=== PATIENT | female | born 1965 | race Caucasian/White ===

== ENCOUNTER 2017-01-04 06:38 | Day surgery (SDC) | payer OTHER ==
--- NOTE | 2017-01-03 14:13 | PCM.HPANE ---
Patient Data Surgeon Admitting Provider: Attending Provider:Edmundo Orantes MD Primary Care Physician:Gonzalez Barraza DO Other Provider:Pilar Pritchardingham Anesthesia Reason for Visit Left Knee Lateral Meniscus Tear Ht/WT & BMI Height (Feet): 5 Height (Inches): 3 Weight (Kilograms): 91.62 Body Mass Index 35.00 Allergies Coded Allergies: No Known Allergies (Verified , 12/05/15) Past Anesthesia History Anesthesia History: Denies:: Abnormal Airway, Anesthesia Reactions (UNCLEAR- PRIOR TO PROCEDURE HAD A CARDIAC ARREST 1988), Difficult Intubation, Fam Anesthesia Reaction, Fam Malignant Hypertherm, Malignant Hyperthermia Diabetes History Hx Diabetes?: No MRSA MRSA: No Medications Reported Medications Albuterol HFA (Proair HFA)8.5 Gm Hfa.aer.ad2 Puffs INHALATION Q4H #1 INHALER 01/02/17 Multivitamin (Multivitamins)1 Each Capsule1 Each PO DAILY 01/02/17 Meloxicam 15 Mg [id number] Mg PO DAILY 30 Days Ref 0 01/02/17 Calcium Carbonate (Calcium)600 Mg [id number] Mg PO DAILY 01/02/17 Amoxicillin/Clav K 875-125 mg (Augmentin 875-125 mg)1 Each Tablet1 Tablet PO BID #20 TABLET Ref 0 01/02/17 Discontinued Reported Medications Benzonatate 200 Mg [id number] Mg PO TID 01/02/17 History History of ENT Problems?: No HEENT History: Positive for:: Sinus Problem (CURRENTLY ON AUGMENTIN) Denies:: Abnormal Airway Difficult Intubation Dysphagia Hearing Problem Hx of Heart Problems?: Yes Cardiovascular History: Positive for:: Chest Pain (12/05 RULE OUT NON CARDIAC) Denies:: AICD Atrial Fibrillation Congestive Heart Failure Hypertension Valvular Heart Disease Hx of Respiratory Problem?: No Respiratory History: Positive for:: Asthma Use of Inhalers / NEBS (OCCASIONAL) Denies:: COPD Cough Hemoptysis Pneumonia Tuberculosis Hx Neurologic Problems?: Yes Neurological History: Denies:: CVA Dementia Other Neurological Pertinent: TOURETTE'S SYNDROME Hx of GI Problems?: Yes Gastrointestinal History: Positive for:: Rectal Bleeding (1 MONTH OF BLACK/ BLOODY STOOL(2011)) Denies:: Cirrhosis Diverticulitis Gastroesphageal Reflux Hiatal Hernia Genitourinary History: Positive for:: Urinary Tract Infection Female Hx: Denies:: Currently (HYSTERECTOMY) Skin History: Denies:: History Skin Disorders? Hx Musculoskeletal Problems?: No Musculoskeletal History: Positive for:: Musculoskeletal Trauma (LEFT KNEE) Osteoarthritis Denies:: Joint Replacement Hx of Psycho/Social Problems?: Yes Psycho Social History: Positive for:: Anxiety Hx Depression (CONTROLLED WITH MEDS) Hx Surgeries?: Yes (HYSTERECTOMY, TUBAL, 3 C-SECTIONS) Hx Any Other Health Problems?: No History Blood Transfusions: Positive for:: Accept Blood Products? Denies:: Blood Transfusions Hx Diabetes: No Other Pertinent History: HX OF ANEMIA HX OF TERITES Hx Alcohol Use: NoHx Substance Use: No Smoking Status: Former Smoker Have You Smoked inLast 12 mo: No Stop/Bang S-Snoring: Do You Snore Loudly: Yes T-Tired: feel tired, fatigued: No O-Obsered: Observed not breath: No P-Blood Pressure: treated: No B- Body Mass Index > 35 kg/m2: Yes A- Age over 50: Yes N- Neck Large Circumference: No G- Gender Male: No ERMA Total Score: 3 Risk Assessment Category Category 1A: Patient has history of documented sleep apnea, and HAS NOT received any narcotic, sedative or anesthesia administration during this stay. Category 1B: Patient has history of documented sleep apnea, and HAS received any narcotic , sedative or anesthesia administration during this stay Category 2: Patient has SUSPECTED Obstructive Sleep Apnea, and HAS received any narcotic , sedative or anesthesia administration during this stay. Category 3: Patient has SUSPECTED Obstructive Sleep Apnea and HAS NOT received narcotic, sedative or anesthesia administration during this stay. Category 4: Outpatient in Procedural Areas with known sleep apnea or who screen positive for High Risk via the STOP/BANG questionnaire. Exam Exam General Appearance: Alert, Oriented X3, Cooperative HEENT/AIRWAY: MP 2, Neck Movement (from), Mouth Opening (wnl) Lungs: Clear to Auscultation Heart: Exam Unremarkable Plan Impression Patient chart reviewed, patient interviewed and anesthestic plan with risks, benefits, and alternatives discussed, and informed consent obtained. ASA Physical Status: ASA2 Mod Systemic Disease Anesthetic Plan: GA Bene/Risks/Altern/Consents: Yes HP Complete Prior to Induction: Yes Frank Thompson had a lap tubal in mid twenties and woke up with a sore chest. She was told she " sort of had a cardiac arrest " during the procedure. She was never given more details than this. She also has had a hysterectomy since then and did fine. Will proceed with atropine close by. Gary Quiroz MD Jan 03, 2017 14:13
[~2017-01-04] VITALS: Ht 157.5 cm; Wt 91.8 kg
[2017-01-04] VITALS (9 sets, daily range): BP systolic 104–132; BP diastolic 50–75; PULSE 63–83; RESP 12–18; O2SAT 92–98
[~2017-01-04 06:38] MED LIST: ALBU8.5H2 INHALATION; AMOX-366 PO; Acetaminophen IV 1,000 MG in IV Premix 1 EACH IV ONE; BENZ200C44 PO; CALC600T12 PO; CeFAZolin Inj 2 GM in Dextrose 5% 50 ML IV ONE; LORazepam 1 mg Tablet PO PRN; MELO-253 PO; MULT1CAP33 PO
[2017-01-04] MEDS ORDERED: HYDROmorphone 2 mg/mL Inj ONE (06:39)
[2017-01-04] MEDS ORDERED: Propofol 10,000 mCg/mL 20 mL Inj ONE (06:39)
[2017-01-04] MEDS ORDERED: Ondansetron 2 mg/mL 2 mL Inj ONE (06:39)
[2017-01-04] MEDS ORDERED: fentaNYL-PF 50 mCg/mL 2 mL Inj ONE (06:39)
[2017-01-04] MEDS ORDERED: Dexamethasone 4 mg/mL Inj ONE (06:39)
[2017-01-04] MEDS ORDERED: CeFAZolin Inj 2 gm / 50mL D5W IV ONE (06:43)
[2017-01-04] MEDS: Lactated Ringer's 1,000 ML IV SCH ×2 (07:43→09:07)
[2017-01-04] MEDS ORDERED: Lactated Ringer's 1,000 ML IV SCH (08:24)
[2017-01-04] MEDS ORDERED: Lactated Ringer's 500 ML IV PRN (08:24)
[2017-01-04] MEDS ORDERED: HYDROmorphone 1 mg/mL Inj IVPUSH PRN (08:25)
[2017-01-04] MEDS ORDERED: Ondansetron 2 mg/mL 2 mL Inj IVPUSH PRN (08:25)
[2017-01-04] MEDS ORDERED: EPHEDrine Sulfate 50 mg/mL Inj IVPUSH PRN (08:25)
[2017-01-04] MEDS ORDERED: Dexamethasone 4 mg/mL Inj IVPUSH PRN (08:25)
[2017-01-04] MEDS ORDERED: hydrALAZINE 20 mg/mL Inj IVPUSH PRN (08:25)
[2017-01-04] MEDS ORDERED: Labetalol 5 mg/mL 4 mL Inj IV PRN (08:25)
[2017-01-04] MEDS ORDERED: Atropine 0.4 mg/mL Inj IVPUSH PRN (08:25)
[2017-01-04] MEDS ORDERED: Phenylephrine 10,000 mCg/mL Inj IVPUSH PRN (08:25)
[2017-01-04] MEDS ORDERED: fentaNYL-PF 50 mCg/mL 2 mL Inj IVPUSH PRN (08:25)
[2017-01-04] MEDS ORDERED: Lidocaine 2% 50 mL Inj IV ONE (09:05)
[2017-01-04] MEDS ORDERED: MethylprednisoLONE Depot 40 mg/mL Inj IRRIGATION ONE (09:21)
[2017-01-04] MEDS ORDERED: HYDROcodone-APAP 5-325 mg Tablet PO PRN (09:40)
--- NOTE | 2017-01-04 09:43 | PCM.ORTHOB ---
Immediate Operative Note Date of Service: Jan 04, 2017 Pre Operative Diagnosis Left knee lateral meniscal tear Post Operative Diagnosis Same Procedure Left knee arthroscopic partial lateral meniscectomy Surgeon Surgeon: Edmundo Orantes MD Assistants: None Findings A anterolateral, extra-articular ganglion cyst was decompressed through the lateral infrapatellar arthroscopic portal at the initiation of the case. Approximately 3 mL of benign-appearing, viscous gelatinous material consistent with a ganglion cyst was expressed. Left knee lateral compartment degenerative tear anterior horn lateral meniscus was confirmed. Diffuse grade 2 chondromalacia in the weightbearing surface on the tibial side. Diffuse grade 1 chondromalacia in the weightbearing surface the lateral femoral condyle. The anterior cruciate ligament showed partial fraying anteriorly but was otherwise intact and stable to probing. The medial compartment was better preserved with an intact and stable medial meniscus. There was some mild, superficial fraying of the anterior horn. There was diffuse grade 1 chondromalacia in the weightbearing surface of tibial articular surface and the medial femoral condyle showed minimal degenerative changes. The medial and lateral gutters were free of loose bodies. The patellofemoral compartment was remarkable for diffuse grade 1-2 chondromalacia affecting the majority of the patellar undersurface. Grafts, Implants: None Complications There were no periprocedural complications identified. Condition Stable Anesthetic Administered: GA Drains: None Catheters: None Output, Estimated Blood Loss: 1 Blood Admin during surgery: No Surgical Cast or Splint: None Additional Information Tourniquet time 18 minutes Surgical Specimen Removed: No Surgical Specimen sent to Path: No Post Operative Plan The patient will be discharged from daycare surgery when protocol is met. The patient may weight-bear as tolerated through her left lower extremity beginning postop day 1. Postoperative knee strengthening exercises will also be reinitiated postop day #1. The patient will be seen in the orthopedic clinic for routine postoperative wound check on her after postop day #5. The patient may have her skin sutures removed on or after postoperative day #12. The patient should be able to resume light activities by that point. Edmundo Orantes MD Jan 04, 2017 09:43
--- NOTE | 2017-01-04 09:47 | PCM.ANEP1 ---
Post Anesthesia Phase 1 PACU Phase 1 Assessment Date of Service: Jan 04, 2017 Vital Signs Vital Signs Date Time Temp Pulse Resp B/P Pulse Ox O2 Delivery O2 Flow Rate FiO2 01/04/17 09:41 64 13 104/50 97 Nasal Cannula 2 01/04/17 09:35 67 12 112/58 92 Room Air 01/04/17 09:30 76 12 113/59 93 Room Air 01/04/17 09:27 35.9 83 18 119/65 93 Room Air 01/04/17 07:25 36.2 76 16 132/75 95 Room Air Anesthetic Administered: GA Level of Alertness: Awake, talking BARTON's with Equal Strength: Yes Pain: No Nausea or Vomiting: No Oxygen Delivery: Room Air Lungs: Normal Air Movement Gary Quiroz MD Jan 04, 2017 09:47
--- NOTE | 2017-01-04 09:51 | PCM.ORTHOP ---
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 Patient has been bothered by left knee pain over the front and outside of her left knee since the incident despite activity modification, an attempt at knee rehabilitation and the use of anti-inflammatory agents. Preoperative exam of the patient's left knee reveals near full and stable knee range of motion with tenderness to palpation of the lateral joint line and a positive Yony test. Preoperative MRI of the patient's left knee is remarkable for horizontal tearing of the anterior horn of lateral meniscus and mild medial and patellofemoral degenerative changes. The patient presents for left knee arthroscopic partial lateral meniscectomy. Findings A anterolateral, extra-articular ganglion cyst was decompressed through the lateral infrapatellar arthroscopic portal at the initiation of the case. Approximately 3 mL of benign-appearing, viscous gelatinous material consistent with a ganglion cyst was expressed. Left knee lateral compartment degenerative tear anterior horn lateral meniscus was confirmed. Diffuse grade 2 chondromalacia in the weightbearing surface on the tibial side. Diffuse grade 1 chondromalacia in the weightbearing surface the lateral femoral condyle. The anterior cruciate ligament showed partial fraying anteriorly but was otherwise intact and stable to probing. The medial compartment was better preserved with an intact and stable medial meniscus. There was some mild, superficial fraying of the anterior horn. There was diffuse grade 1 chondromalacia in the weightbearing surface of tibial articular surface and the medial femoral condyle showed minimal degenerative changes. The medial and lateral gutters were free of loose bodies. The patellofemoral compartment was remarkable for diffuse grade 1-2 chondromalacia affecting the majority of the patellar undersurface. Details of Procedure The patient was brought to the OR and given a general anesthetic. She was placed in the supine position and the tourniquet was placed high about the left thigh. Left lower extremity was prepped and draped in usual sterile fashion and the tourniquet was inflated to 275 mmHg. We placed 2 infrapatellar arthroscopic portals, one lateral and one medial for the arthroscope and instruments. After placing the lateral arthroscopic portal at the level of the joint line we encountered a subcutaneous ganglion cyst and were able to express approximately 3 mL of benign-appearing gelatinous material consistent with a ganglion cyst. We deepened the percutaneous incisions into the joint. We inserted the arthroscope, instruments and instilled the knee with lactated Ringer's with epinephrine. We went directly into the lateral compartment where we encountered a degenerative tear of the anterior horn of the lateral meniscus involving the anterior fibers and peripherally extending towards the body. We used the arthroscopic shaver to debride the degenerative-appearing horizontal tear back to a stable base. Care was taken to avoid injury to the anterior cruciate ligament where it inserted medial to the tear. Once we had debrided the lateral meniscus. We reviewed the rest of the knee. We found early degenerative changes in the lateral compartment, primarily affecting the tibial articular surface with diffuse grade 2 chondromalacia. We noted diffuse grade 1 chondromalacia of the lateral femoral condyle weightbearing surface. The anterior cruciate ligament was reviewed and found to have some minor anterior fiber tearing of chronic appearance. The majority of the ligament was intact and stable to probing. The medial compartment was better preserved with minimal degenerative changes and intact and stable medial meniscus with some minor drainage of the anterior horn fibers. We reviewed the medial and lateral gutters and found to be free of loose bodies. The patellofemoral compartment was reviewed and found to have mild early degenerative changes with diffuse grade 1-2 chondromalacia primarily affecting the patellar undersurface. We thoroughly irrigated the knee and removed the scope and instruments. 30 mL of 2 % lidocaine with epinephrine and 40 mg of Depo-Medrol was instilled into the knee. The arthroscopic portal sites were closed with interrupted 4-0 nylon sutures. The wound dressed with Xeroform and dry gauze dressings. Tourniquet was deflated the patient was taken back to PACU in stable and satisfactory condition. There are no complications. Patient tolerated procedure well. Grafts, Implants: None Complications There were no periprocedural complications identified. Condition Stable Anesthetic Administered: GA Drains: None Catheters: None Output, Estimated Blood Loss: 1 Blood Admin during surgery: No Surgical Cast or Splint: None Addtional Information Tourniquet time 18 minutes Surgical Specimen Removed: No Specimen sent to Pathology: No Post Operative Plan The patient will be discharged from daycare surgery when protocol is met. The patient may weight-bear as tolerated through her left lower extremity beginning postop day 1. Postoperative knee strengthening exercises will also be reinitiated postop day #1. The patient will be seen in the orthopedic clinic for routine postoperative wound check on her after postop day #5. The patient may have her skin sutures removed on or after postoperative day #12. The patient should be able to resume light activities by that point. copies to: Gonzalez Barraza DO; Edmundo Orantes MD, Michael G.E MD Jan 04, 2017 09:51
--- NOTE | 2017-01-04 11:06 | PCM.ANEP2 ---
Post Anesthesia Evaluation ASA/CMS Post Anesthesia VS in Patient's Normal Range?: Yes Resp Stable; Airway Patent?: Yes CV Function & Hydration Stable: Yes Mental Status Recovered?: Yes Pain control Satisfactory?: Yes N/V Control Satisfactory?: Yes Gary Quiroz MD Jan 04, 2017 11:06
== END 2017-01-04 23:59 | disposition home or self-care (01) ==
LOC: SAS 06:38
PROVIDERS: ATTEND Orthopaedic Surgery
DX: M23.242 Derangement of anterior horn of lateral meniscus due to old tear or injury, left knee (principal); M22.42 Chondromalacia patellae, left knee; M67.462 Ganglion, left knee; W10.8XXA Fall (on) (from) other stairs and steps, initial encounter; Y93.89 Activity, other specified; Y92.69 Other specified industrial and construction area as the place of occurrence of the external cause; Y99.0 Civilian activity done for income or pay; F32.9 Major depressive disorder, single episode, unspecified; J45.909 Unspecified asthma, uncomplicated; F41.9 Anxiety disorder, unspecified; Z87.891 Personal history of nicotine dependence
CPT/HCPCS: 29881; J0131; J0690; J1030; J1100; J1170; J2250; J2405; J3010; J7120

== ENCOUNTER 2017-06-16 12:41 | Emergency (ER) | payer OTHER ==
[~2017-06-16] VITALS: Ht 160 cm; Wt 88.2 kg
[~2017-06-16 12:41] MED LIST changes: -Acetaminophen IV 1,000 MG in IV Premix 1 EACH IV ONE; -BENZ200C44 PO; -CeFAZolin Inj 2 GM in Dextrose 5% 50 ML IV ONE; -LORazepam 1 mg Tablet PO PRN
--- NOTE | 2017-06-16 12:55 | ED.REPORT ---
HPI-Chest Pain 40 and Over Date of Service Jun 16, 2017 ED Provider: Edison Eden MD A 52 year old female with a history of depression, anxiety and asthma presents to the ED complaining of chest pain. She describes the pain as nonradiating, nonexertional "heaviness" concentrated in the central and left side of her chest , accompanied by nausea, mild shortness of breath and "back aching." The symptoms began 1.5 hours ago and persisted intermittently for twenty minutes. Each episode lasted for approximately two minutes. The pain resolved before she arrived in the ED. The pt denies vomiting, abdominal pain, burning pain in her mouth, strange taste, cough, fever, hemoptysis, lower extremity pain or lower extremity swelling. The pt did not take any medications to treat her symptoms. She has experienced chest pain before, but states that this pain is different than pain she has felt before. The pt denies history of blood clot but is taking progesterone. She denies recent surgery or travel. Nursing Notes Stated Complaint: CHEST PAIN Nursing Notes Reviewed: Yes Allergies: Coded Allergies: No Known Allergies (Verified , 12/05/15) Scheduled Albuterol HFA (Proair HFA) 8.5 Gm Hfa.aer.ad 2 PUFFS INHALATION Q4H Amoxicillin/Clav K 875-125 mg (Augmentin 875-125 mg) 1 Each Tablet 1 TABLET PO BID Calcium Carbonate (Calcium) 600 Mg Tablet 400 MG PO DAILY Meloxicam (Meloxicam) 15 Mg Tablet 15 MG PO DAILY Multivitamin (Multivitamins) 1 Each Capsule 1 EACH PO DAILY General Time Seen by MD: 12:55 Chief Complaint Chest pain Hx Obtained From: Patient Arrived By: Walk-in Sudden in Onset?: Yes Onset Occurred: 1 - 4 hours ago Symptom Duration: Intermittent Recent Healthcare: No recent hospitalization, Recent doctor visit Similar Sx Previous: No Risk Factors HEART Score HEART for MACE: Low index of susp (0), Normal ECG (0), Age 45 - 65 (1), No risk factors known (0), < or = to NL troponin (0) PERC Rule Age 50 or over PERC Result: PERC rule satisfied Past Medical History Past Medical History tourette's syndrome depression anxiety asthma UTI Past Surgical History Total hysterectomy bilateral salpingo oophorectomy colonoscopy-3 polyps removed Reports: (x3) Family History Mother-Afib Reports: Diabetes mellitus Reports: Cancer Smoking History Former Smoker Social History Drug Use: Denies drug use Ambulatory Status Independent Review of Systems Review of Systems Note: back aching denies burning pain in mouth denies strange taste in mouth denies lower extremity pain or swelling Constitutional: Denies: Fever Respiratory: Reports: Shortness of breath (mild), Denies: Non-productive cough, Prod cough, bloody Cardiovascular: Reports: Chest pain GI: Reports: Nausea, Denies: Abdominal pain, Vomiting Musculoskeletal: Denies: Neck pain Skin: Denies Rash Complete sys rev & neg: except as marked. Physical Exam Initial Vital Signs Vital Signs (First) Date Time Temp Pulse Resp B/P Pulse Ox O2 Delivery O2 Flow Rate FiO2 06/16/17 12:56 37 79 14 147/88 99 Room Air Initial VS: Reviewed General/Constitutional: Awake, Alert Respiratory / Chest: Atraumatic, Breath sounds NL, Breath sounds = bilat, No respiratory distress reproducible left chest wall tenderness with palpation Cardiovascular: Heart rate NL, Regular rhythm, Heart sounds NL Abdomen: Atraumatic, Soft, Non-tender Neck: Atraumatic, Supple, Full range of motion Back: Atraumatic, Full range of motion Lower Extremity / Pelvis / MS: Atraumatic, Full range of motion, No edema Skin: Atraumatic, Color NL, No rash, Warm, Dry Neurologic: Oriented X3, Speech NL, No motor deficits, No sensory deficits Psychiatric: Affect NL, Mood NL Head / Eyes: Atraumatic, Normocephalic, PERRL, EOMI ENT: Atraumatic, Airway patent, Mucous membranes moist Upper Extremity / MS: Atraumatic, Full range of motion Interpretation & Diagnostics Lab Results Interpretation Result Diagram: 06/16/17 1250 06/16/17 1250 Test 06/16/17 12:50 06/16/17 15:05 06/16/17 15:15 White Blood Count 7.4th/mm3 (3.8-10.1) Red Blood Count 4.93mil/mm3 (3.90-5.20) Hemoglobin 14.8g/dL (12.0-15.6) Hematocrit 43.9% (35.0-46.0) Mean Corpuscular Volume 89.0fL (81-100) Mean Corpuscular Hemoglobin 30.0pg (27.0-35.0) Mean Corpuscular Hemoglobin Concent 33.7% (32.0-37.0) Red Cell Distribution Width 13.6% (12.3-15.4) Platelet Count 239bil/L (150-400) Neutrophils (%) (Auto) 54.1% (40-74) Lymphocytes (%) (Auto) 33.4% (14-46) Monocytes (%) (Auto) 10.8% (4-12) Eosinophils (%) (Auto) 0.8% (0-5) Basophils (%) (Auto) 0.5% (0-3) D-Dimer < 0.50mg/L FEU (<0.50) Sodium Level 139mEq/L (134-144) Potassium Level 4.0mEq/L (3.5-5.2) Chloride Level 100mEq/L (97-108) Carbon Dioxide Level 23mmol/L (18-29) Blood Urea Nitrogen 17mg/dL (6-24) Creatinine 0.78mg/dL (0.57-1.00) Estimat Glomerular Filtration Rate 110mL/min (>59) Glucose Level 110mg/dL (60-99) Calcium Level 9.8mg/dL (8.5-10.1) Magnesium Level 1.9mg/dL (1.6-2.6) Total Bilirubin 0.3mg/dL (0.0-1.2) Aspartate Amino Transf (AST/SGOT) 20U/L (0-50) Alanine Aminotransferase (ALT/SGPT) 17U/L (0-32) Alkaline Phosphatase 92U/L (25-150) Total Protein 7.7g/dL (6.4-8.4) Albumin 4.6g/dL (3.4-5.0) Hold Urine Received (Received) Troponin T < 0.010ug/L (0.0-0.011) ECG Interpretation ECG Interpretation: normal sinus rhythm with a rate of 88 Time: 12:49 Interpreted by: ED physician X-Ray Chest Interpretation Chest Xray Interpretation: IMPRESSION: Source of chest pain not seen. Dictated by: German Abraham M.D. on 06/16/2017 at 13:17 Approved by: German Abraham M.D. on 06/16/2017 at 13:17 Interpretation / Wet Read by: Interpret - Radiologist Re-Eval/Medical Decision Med Decision/Clinical Course 52-year-old female reportedly no cardiac risk factors as a left-sided chest pain all she was sitting still that lasted for 20 minutes while she was at work today. It was nonexertional and not relieved by rest. This resolved by the time she arrived. Her vital signs are stable. No EKG changes. Her troponins are negative 2. Her d-dimer is negative. She did have some left chest reproducible tenderness. Possible musculoskeletal etiology. Cannot rule out angina the patient requested follow up with her primary doctor. She will take a daily aspirin. Given her low heart score, negative troponins, reproducible nature, negative d-dimer and no EKG changes do believe she is safe to be discharged home with follow-up with primary doctor Monday. Return precautions given. Source of Hx: Old records Time of Eval: 16:18 Patient Status: Condition improved Re-Evaluation/Progress Note: Pt rechecked, who is resting comfortably. The plan for additional lab testing is discussed. Time of Eval: 16:32 Patient Status: Condition improved Re-Evaluation/Progress Note: Pt rechecked and informed of her lab results. The diagnosis and plan for discharge are discussed. The pt understands and agrees with the plan. All questions are addressed at this time. Counseled Regarding: Diagnosis, Lab results, Need for follow-up, When/why to return to ED Discharge & Departure Primary Impression: Chest pain Chest pain type: unspecified Qualified Code: R07.9 - Chest pain, unspecified Additional Impression: Shortness of breath Disposition: Home Discharge Condition All VS Reviewed: Yes Condition: Stable Patient Instructions: Chest Pain (ED), Shortness of Breath (ED) Additional Instructions: Thank you for allowing us to be a part of your care. Your evaluation in the emergency department is reassuring. Call your primary care physician to arrange a follow up appointment next week for further evaluation. Return to the emergency department if you develop any recurrent chest pain, difficulty breathing, other new or concerning symptoms. You may benefit from a stress test as an outpatient. Please take a baby aspirin 81mg daily. Referrals: Gonzalez Barraza DO (PCP) Scribe Attestation Portions of this note were transcribed by Sasha Pineda. I, Dr. Eden personally performed the history, physical exam and medical decision-making; I reviewed and confirmed the accuracy of the information in the transcribed note. copies to: Gonzalez Barraza Ben M MD Jun 16, 2017 12:55 SASHA PINEDA Jun 16, 2017 13:31
[2017-06-16 12:56] VITALS: BP 147/88; PULSE 79; RESP 14; O2SAT 99
[2017-06-16 13:09] LABS: BASOPHILS % (AUTO) 0.5 % (0-3); EOSINOPHILS % (AUTO) 0.8 % (0-5); MONOCYTES % (AUTO) 10.8 % (4-12); NEUTROPHILS % (AUTO) 54.1 % (40-74); Platelet Count 239 bil/L (150-400)
--- NOTE | 2017-06-16 13:20 | DRSVH ---
PROCEDURE: X-RAY CHEST ONE VIEW, PORTABLE ([id number]) INDICATIONS: chest pain TECHNIQUE: One view of the chest was acquired. COMPARISON: [facility], CR, XR CHEST 1VW (PORTABLE), 12/05/2015, 18:54. FINDINGS: Surgical changes and devices: None. Lungs and pleura: No pleural effusions or pneumothorax. Lungs are clear. Mediastinum: Mediastinal contours appear normal. Heart size is normal. Bones and chest wall: No suspicious bony lesions. Overlying soft tissues appear unremarkable. IMPRESSION: Source of chest pain not seen. Dictated by: German Abraham M.D. on 06/16/2017 at 13:17 Approved by: German Abraham M.D. on 06/16/2017 at 13:17
[2017-06-16 13:28] LABS: TROPONIN T < 0.010 ug/L (0.0-0.011)
[2017-06-16 13:38] LABS: Magnesium 1.9 mg/dL (1.6-2.6)
[2017-06-16 16:57] VITALS: BP 133/79; PULSE 75; RESP 20; O2SAT 99
== END 2017-06-16 16:58 | disposition home or self-care (01) ==
LOC: SED 12:41
DX: R07.89 Other chest pain (principal); R06.02 Shortness of breath; R11.0 Nausea; F41.8 Other specified anxiety disorders; J45.909 Unspecified asthma, uncomplicated; Z87.440 Personal history of urinary (tract) infections; Z87.891 Personal history of nicotine dependence
CPT/HCPCS: 36415; 71010; 80053; 82948; 83735; 84484; 85025; 85378; 93005; 96374; 99285; J1885